=== PATIENT | female | born 1930 | race African-American/Black ===

== ENCOUNTER 2016-10-14 23:41 | Emergency (ER) | payer MEDICARE, BC ==
[2016-10-15 00:40] LABS: Hematocrit 39 % (35-47); Hemoglobin 12.9 g/dl (12.0-16.0); Mean Corpuscular HGB Conc 33 g/dl (31-36); Mean Corpuscular Hemoglobin 31 pg (27-31); Mean Corpuscular Volume 93 fL (80-97); Mean Platelet Volume 9 um3 (7.4-10.4); Red Blood Count 4.21 10^6/ul (4.0-5.4); Red Cell Distribution Width 14 % (10.5-15); White Blood Count 5.4 10^3/ul (3.5-10.8)
[2016-10-15 00:51] LABS: Albumin 3.5 g/dL (3.2-5.2); BUN/Creatinine Ratio 19.6 (8-20); EGFR African American 46.6 (>60); EGFR Non-African American 36.3 (>60); Globulin 3.1 g/dL (2-4); Total Bilirubin 0.3 mg/dL (0.2-1.0); Total Protein 6.6 g/dL (6.4-8.9)
[2016-10-15 00:52] LABS: Potassium 3.7 mmol/L (3.5-5.0)
--- NOTE | 2016-10-15 01:15 | ED ---
Martha Donohue Alfonso, scribed for Loreto Lopez MD on 10/15/16 at 0034 . Complex/Multi-Sys Presentation - HPI Summary HPI Summary: This patient is an 86 year old F presenting to [facility] accompanied by daughter and son with a chief complaint of bleeding since 2244 today. The bleeding was either vaginal or rectal per patient. The CC is described as a discomfort and bright red blood. Pt rates the pain 0/10 in severity. Symptoms aggravated and alleviated by nothing. Pt denies abdominal pain. PCP is Dr. Goetz. Pt lives alone. Denies PMHx of HLD. PMHx of DM, and HTN. Pt is on Xarelto. - History Of Current Complaint Chief Complaint: EDGeneral Time Seen by Provider: 10/15/16 00:09 Hx Obtained From: Patient Onset/Duration: Sudden Onset, Lasting Hours - 2244 today, Still Present Timing: Constant Severity Currently: Moderate Severity Initially: Moderate Aggravating Factor(s): Nothing Alleviating Factor(s): Nothing Associated Signs And Symptoms: Negative: Abdominal Pain - Allergies/Home Medications Allergies/Adverse Reactions: Allergies Allergy/AdvReac Type Severity Reaction Status Date / Time No Known Allergies Allergy Verified 10/14/16 23:50 PMH/Surg Hx/FS Hx/Imm Hx Endocrine/Hematology History: Reports: Hx Diabetes, Hx Thyroid Disease - hypothyroidism Denies: Hx Anemia Cardiovascular History: Reports: Hx Hypertension Denies: Hx Hypercholesterolemia, Other Cardiovascular Problems/Disorders GI History: Denies: Hx Jaundice Musculoskeletal History: Reports: Hx Arthritis - RIGHT KNEE, LEFT FOOT Sensory History: Reports: Hx Cataracts - cataracts removed, Hx Contacts or Glasses - glasses used occasionally Denies: Hx Hearing Aid, Hx Hearing Problem Opthamlomology History: Reports: Hx Cataracts - cataracts removed, Hx Contacts or Glasses - glasses used occasionally Neurological History: Reports: Other Neuro Impairments/Disorders - diabetic neuropathy - Surgical History Surgery Procedure, Year, and Place: Total Knee replacement, 01/27/16; catatract removal;. LASER SURGERY FOR DAMAGED RETINA. THYROIDECTOMY, . HYSTERECTOMY, 1968 Hx Anesthesia Reactions: No Infectious Disease History: No Infectious Disease History: Denies: Traveled Outside the [place] in Last 30 Days - Family History Known Family History: Positive: Diabetes - Social History Lives: Alone Alcohol Use: Occasionally Alcohol Amount: 2 PER MONTH Substance Use Type: Reports: None Smoking Status (MU): Never Smoked Tobacco Have You Smoked in the Last Year: No Review of Systems Negative: Abdominal Pain Positive: other - Positive vaginal or rectal bleeding All Other Systems Reviewed And Are Negative: Yes Physical Exam Triage Information Reviewed: Yes Vital Signs On Initial Exam: Initial Vitals Temp Pulse Resp BP Pulse Ox 98.5 F 65 16 176/77 99 10/14/16 23:45 10/14/16 23:45 10/14/16 23:45 10/14/16 23:45 10/14/16 23:45 Vital Signs Reviewed: Yes Appearance: Positive: Well-Appearing, No Pain Distress Skin: Positive: Warm, Skin Color Reflects Adequate Perfusion Eyes: Positive: EOMI, RENETTA ENT: Positive: Pharynx normal, TMs normal Neck: Positive: Supple, Nontender Respiratory/Lung Sounds: Positive: Clear to Auscultation, Breath Sounds Present. Negative: Rales, Rhonchi, Wheezes Cardiovascular: Positive: RRR, Other - No gallop. Negative: Murmur, Rub Abdomen Description: Positive: Nontender, Soft, Other: - No rebound. No external hemorrhoid. No vaginal blood.. Negative: Distended, Guarding Bowel Sounds: Positive: Present Musculoskeletal: Positive: Strength/ROM Intact, Other - No edema. Neurological: Positive: Sensory/Motor Intact, Alert, Oriented to Person Place, Time, CN Intact II-III - 2-12 Psychiatric: Positive: Affect/Mood Appropriate - [place] Coma Scale Coma Scale Total: 15 Diagnostics - Vital Signs Vital Signs Temp Pulse Resp BP Pulse Ox 10/14/16 23:58 98.5 F 66 16 179/71 98 10/14/16 23:45 98.5 F 65 16 176/77 99 - Laboratory Lab Results: Lab Results 10/15/16 10/15/16 10/15/16 Range/Units 00:28 00:28 00:28 WBC 5.4 (3.5-10.8) 10^3/ul RBC 4.21 (4.0-5.4) 10^6/ul Hgb 12.9 (12.0-16.0) g/dl Hct 39 (35-47) % MCV 93 (80-97) fL MCH 31 (27-31) pg MCHC 33 (31-36) g/dl RDW 14 (10.5-15) % Plt Count 241 (150-450) 10^3/ul MPV 9 (7.4-10.4) um3 Neut % (Auto) 51.5 (38-83) % Lymph % (Auto) 35.7 (25-47) % Evangeline % (Auto) 9.9 H (1-9) % Eos % (Auto) 1.7 (0-6) % Baso % (Auto) 1.2 (0-2) % Absolute Neuts (auto) 2.8 (1.5-7.7) 10^3/ul Absolute Lymphs (auto) 1.9 (1.0-4.8) 10^3/ul Absolute Monos (auto) 0.5 (0-0.8) 10^3/ul Absolute Eos (auto) 0.1 (0-0.6) 10^3/ul Absolute Basos (auto) 0.1 (0-0.2) 10^3/ul Absolute Nucleated RBC 0 10^3/ul Nucleated RBC % 0.1 INR (Anticoag Therapy) 2.22 H (0.89-1.11) APTT 38.6 H (26.0-36.3) seconds Sodium 138 (133-145) mmol/L Potassium 3.7 (3.5-5.0) mmol/L Chloride 102 (101-111) mmol/L Carbon Dioxide 30 (22-32) mmol/L Anion Gap 6 (2-11) mmol/L BUN 27 H (6-24) mg/dL Creatinine 1.38 H (0.51-0.95) mg/dL Est GFR ( Amer) 46.6 (>60) Est GFR (Non-Af Amer) 36.3 (>60) BUN/Creatinine Ratio 19.6 (8-20) Glucose 124 H (70-100) mg/dL Calcium 9.0 (8.6-10.3) mg/dL Total Bilirubin 0.30 (0.2-1.0) mg/dL AST 21 (13-39) U/L ALT 11 (7-52) U/L Alkaline Phosphatase 70 (34-104) U/L Total Protein 6.6 (6.4-8.9) g/dL Albumin 3.5 (3.2-5.2) g/dL Globulin 3.1 (2-4) g/dL Albumin/Globulin Ratio 1.1 (1-3) Blood Type Antibody Screen 10/15/16 Range/Units 00:28 WBC (3.5-10.8) 10^3/ul RBC (4.0-5.4) 10^6/ul Hgb (12.0-16.0) g/dl Hct (35-47) % MCV (80-97) fL MCH (27-31) pg MCHC (31-36) g/dl RDW (10.5-15) % Plt Count (150-450) 10^3/ul MPV (7.4-10.4) um3 Neut % (Auto) (38-83) % Lymph % (Auto) (25-47) % Evangeline % (Auto) (1-9) % Eos % (Auto) (0-6) % Baso % (Auto) (0-2) % Absolute Neuts (auto) (1.5-7.7) 10^3/ul Absolute Lymphs (auto) (1.0-4.8) 10^3/ul Absolute Monos (auto) (0-0.8) 10^3/ul Absolute Eos (auto) (0-0.6) 10^3/ul Absolute Basos (auto) (0-0.2) 10^3/ul Absolute Nucleated RBC 10^3/ul Nucleated RBC % INR (Anticoag Therapy) (0.89-1.11) APTT (26.0-36.3) seconds Sodium (133-145) mmol/L Potassium (3.5-5.0) mmol/L Chloride (101-111) mmol/L Carbon Dioxide (22-32) mmol/L Anion Gap (2-11) mmol/L BUN (6-24) mg/dL Creatinine (0.51-0.95) mg/dL Est GFR ( Amer) (>60) Est GFR (Non-Af Amer) (>60) BUN/Creatinine Ratio (8-20) Glucose (70-100) mg/dL Calcium (8.6-10.3) mg/dL Total Bilirubin (0.2-1.0) mg/dL AST (13-39) U/L ALT (7-52) U/L Alkaline Phosphatase (34-104) U/L Total Protein (6.4-8.9) g/dL Albumin (3.2-5.2) g/dL Globulin (2-4) g/dL Albumin/Globulin Ratio (1-3) Blood Type A Positive Antibody Screen Negative Result Diagrams: 10/15/16 00:28 10/15/16 00:28 Lab Statement: Any lab studies that have been ordered have been reviewed, and results considered in the medical decision making process. Complex Multi-Symp Course/Dx Course Of Treatment: 86 yo female who found red blood upon wiping on vaginal and rectal exams were negative. The amount of bleeding was scant and she doesn't have any abdominal pain. Pt is on xarelto and recently had an external hemorrhoid that resolved with cream from her pmd. She will do close f/ u with her pmd - Diagnoses Provider Diagnoses: GI bleed Discharge - Discharge Plan Condition: Stable Disposition: HOME The documentation as recorded by the Martha murillo Alfonso accurately reflects the service I personally performed and the decisions made by me, Loreto Lopez MD.
[2016-10-15 01:23] VITALS: BP 147/63
== END 2016-10-15 01:32 | disposition home or self-care (01) ==
LOC: ED 23:41
DX: K92.2 Gastrointestinal hemorrhage, unspecified (principal)
CPT/HCPCS: 36415; 80053; 82272; 85025; 85610; 85730; 86850; 86900; 86901; 99282